=== PATIENT | male | born 1960 | race Two or more races ===

== ENCOUNTER 2024-11-20 08:35 | Outpatient (RCR) | payer MEDICAID, SELFPAY ==
--- NOTE | 2024-11-20 09:06 | PTNOTE_ITS ---
PT OP Initial Eval Patient Information Outpatient Physical Therapy Treatment Date: 11/20/24 Visit Reasons: Pain in RT shoulder Medical Diagnosis: M25.511 G89.29 Start of Care: 11/20/24 Date of Onset: 6 months Smoking Status Smoking Status: Never smoker Initial Assessment Subjective: Pt is 64 yr old slovenian speaking male who reports R shoulder pain since feeling a pop while cutting a branch x6 months ago. Increased pain at night, lifting things, reaching OH, throwing things with R UE. 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 PMH: allergies, gastritis, L/S sx x3 to repair disc injury, high cholesterol, R shoulder sx x2, L shoulder sx RCR Imaging: Xrays of R shoulder with provider Pt goal: less shoulder pain but not sure if therapy will help Objective: R shoulder ArOM: Strength: FF: 135 deg 3-/5 Abd: 115 deg with pain 3-/5 ER: 80 deg Special tests: [place]: positive Empty can: positive Drop arm: positive Assessment: Pt presents with limited ROM , strength and pain consistent with R shoulder RC tendinopathy and possible tear. Pt is not likely going to benefit from skilled therapy and has poor rehab potential to meet goals. Pt will most likely have more pain with therapy interventions. PT recommends further diagnostic imaging of R shoulder such as MRI. Short Term and Residential Goals Eval and D/C Treatment Plan Eval and D/C Certification Dates: 11/20/24-11/21/24 Procedure Charges OP PT Eval Mod Complex 30 minutes: Yes
== END 2024-11-27 23:59 | disposition home or self-care (01) ==
LOC: CPTX 08:35
PROVIDERS: PCP Physician Assistant; Referring Provider Physician Assistant; Visit Provider Physician Assistant
DX: M25.511 Pain in right shoulder (principal); G89.29 Other chronic pain
CPT/HCPCS: 97162

== ENCOUNTER 2024-12-12 13:28 | Emergency (ER) | payer MEDICAID, SELFPAY ==
[2024-12-12 13:29] VITALS: BMI 31.4
[2024-12-12 13:43] VITALS: BP 138/77; PULSE 86; RESP 18; TEMP 36.6; O2SAT 95
[2024-12-12] MEDS: LIDOCAINE HCL 1% 20 ML VIAL INFL (14:36)
--- NOTE | 2024-12-12 14:50 | PD.EDWOUND ---
ED Wound/Laceration-RME/HPI General Chief Complaint: Wound/Laceration Stated Complaint: LAC TO L) THUMB Time Seen by Provider: 12/12/24 13:32 Source: patient Arrival date/time: 12/12/24 13:28 This is a case of 65-year-old male who came in in the emergency room due to a laceration of the left thumb history of present illness started 1 hour prior to arrival in the emergency room patient left thumb accidentally cut by a chainsaw sustaining laceration 5 cm on the left thumb no other injury noted Limitations: no limitations Related Data Home Medications ?Medication ?Instructions ?Recorded ?Confirmed montelukast 10 mg tablet 10 mg PO HS #0 tabs 06/06/15 11/27/21 (Singulair) gabapentin 600 mg tablet 600 mg PO Q8H #0 tabs 03/17/17 11/27/21 amlodipine 5 mg tablet 1 tab PO QDAY 11/27/21 11/27/21 baclofen 10 mg tablet 1 tab PO BID 11/27/21 11/27/21 cetirizine 10 mg tablet 1 tab PO QDAY 11/27/21 11/27/21 dexlansoprazole 60 mg 1 cap PO QDAY 11/27/21 11/27/21 capsule,biphase delayed release esomeprazole magnesium 40 mg 1 cap PO QDAY 11/27/21 11/27/21 capsule,delayed release fluticasone propionate 50 1 spray intranasal BID 11/27/21 11/27/21 mcg/actuation nasal spray,suspension hydroxyzine HCl 25 mg tablet 1 tab PO QDAY 11/27/21 11/27/21 loratadine 10 mg tablet 1 tab PO QDAY 11/27/21 11/27/21 losartan 100 1 tab PO QDAY 11/27/21 11/27/21 mg-hydrochlorothiazide 25 mg tablet milnacipran 12.5 mg (5)-25 See Rx Instructions .Route .COMPLEX 11/27/21 11/27/21 mg(8)-50mg(42) tablets in a dose pack (Savella) svaikahv-fvvrsjwkb-xdsmsrhp 3.5 1 drp ophthalmic (eye) BID 11/27/21 11/27/21 mg/mL-10,000 unit/mL-0.1% eye drops sennosides 8.6 mg tablet (senna) 2 tab PO HS 11/27/21 11/27/21 sertraline 100 mg tablet 1 tab PO BID 11/27/21 11/27/21 simvastatin 20 mg tablet 1 tab PO QPM 11/27/21 11/27/21 sucralfate 1 gram tablet 1 tab PO BID 11/27/21 11/27/21 tramadol 100 mg tablet 1 tab PO QDAY 11/27/21 11/27/21 Previous Rx's ?Medication ?Instructions ?Recorded cephalexin 500 mg tablet 500 mg PO QID 10 days #40 tabs 12/12/24 mupirocin 2 % topical ointment 1 applic topical TID #22 grams 12/12/24 Allergies Allergy/AdvReac Type Severity Reaction Status Date / Time No Known Allergies Allergy Verified 12/12/24 13:31 Review of Systems Review of Systems Systems Reviewed: All systems reviewed, normal except as documented Constitutional Constitutional: Reports system reviewed and no additional complaints, except as documented and Reports as per HPI Cardiovascular Cardiovascular: Reports system reviewed and no additional complaints, except as documented and Reports as per HPI Respiratory Respiratory: Reports system reviewed and no additional complaints, except as documented and Reports as per HPI Gastrointestinal Gastrointestinal: Reports system reviewed and no additional complaints, except as documented and Reports as per HPI Musculoskeletal Musculoskeletal: Reports other (Left thumb injury) Integumentary/Breasts Skin/Breast: Reports system reviewed and no additional complaints, except as documented, Reports as per HPI and Reports other (Laceration) Neurologic Neurologic: Reports system reviewed and no additional complaints, except as documented Past Medical History Past Medical History NEUROLOGIC: Negative Neurological Disorders or Seizures CARDIAC: Positive Cardiac Disorders, Hypercholesterolemia and Hypertension; Negative Congestive Heart Failure or Edema RESPIRATORY: Positive Asthma; Negative Chronic Obstructive Pulmonary Disease (COPD) or Sleep Apnea GASTROINTESTINAL: Positive Gastrointestinal Disorders (Gastritis and esophagitis), Hemorrhoids and Gastroesophageal Reflux Disease GENITOURINARY: Negative Genitourinary Disorders or Renal Disease MUSCULOSKELETAL: Positive Musculoskeletal Disorders ENDOCRINE: Negative Endocrine Disorders, Diabetes Mellitus Type 1, Diabetes Mellitus Type 2 or Hypothyroidism HEMATOLOGIC: Negative Blood Disorders, Anemia or Clotting Problems PSYCHO/SOCIAL: Positive Depression and Anxiety OTHER HISTORY: Negative Hospitalization, Falls, Blood Transfusions, Anesthesia Reactions, Chemotherapy or Radiation Therapy Surgical History SURGICAL: Negative Cardiac Surgery Social History SMOKING STATUS: Never smoker ED Exam General Limitations: Present no limitations General appearance: Present alert, in no apparent distress and other (Patient is awake alert oriented not in distress well-hydrated well-nourished) Head Head exam: Present atraumatic Eye Eye exam: Present normal appearance, PERRL and EOMI ENT ENT exam: Present normal exam, normal oropharynx and mucous membranes moist Neck Neck exam: Present normal inspection, full ROM and trachea midline Chest Chest inspection: Present normal inspection and symmetric chest wall rise Respiratory Respiratory exam: Present normal lung sounds bilaterally; Absent respiratory distress, wheezes, stridor, accessory muscle use or prolonged expiratory phase Cardiovascular Cardiovascular exam: Present regular rate, normal rhythm and normal heart sounds; Absent bradycardia, tachycardia, irregular rhythm, systolic murmur or diastolic murmur Abdominal Exam Abdominal exam: Present soft and normal bowel sounds; Absent distention, tenderness, rebound, rigidity, diminished bowel sounds, hyperactive bowel sounds, hypoactive bowel sounds or organomegaly Extremities Exam Extremities exam: Present normal inspection and full ROM Expanded Upper Extremity Exam Hand exam: Present other (5 cm laceration on the left dorsal left thumb ROM intact pulses were full and equal capillary refill less than 2 seconds sensory and reflex were normal) Back Exam Back exam: Present normal inspection and full ROM Neurological Exam Neurological exam: Present alert, oriented X3, CN II-XII intact, normal gait and reflexes normal; Absent motor sensory deficit Psychiatric Psychiatric exam: Present normal affect and normal mood Skin Skin exam: Present warm, dry, intact, normal color and other (Patient sustained 5 cm laceration on the left thumb linear minimal bleeding no foreign body no tendon no bone no muscle injury no redness no cellulitis no abscess) Course Quality Measures none Orders Category Date Time Status Lidocaine 1% 20 ml [Xylocaine 1% 20 ML] Med 12/12/24 14:32 Discontinued 20 ml INFL X1 ONE TET,DIP/PERT AC (Adult)-Tdap [Boostrix Adult (Tdap) Med 12/12/24 14:50 Discontinued Vacc] 0.5 ml IMI .ONCE ONE Vital Signs Vital signs: Vital Signs Temperature 98 F 12/12/24 13:43 Pulse Rate 86 12/12/24 13:43 Respiratory Rate 18 12/12/24 13:43 Blood Pressure 138/77 H 12/12/24 13:43 Pulse Oximetry (%) 95 12/12/24 13:43 Oxygen Delivery Method Room Air 12/12/24 13:43 Patient is afebrile not tachycardic not tachypneic BP stable not hypoxic oxygen saturation is 95% in room PROCEDURES: Laceration Laceration 1: Site: other (Thumb) Side (If applicable): left Size (cm): 5 Description: linear Depth: simple, single layer Local Anesthetic: lidocaine 1% Amount of anesthesia used (mL): 10 Pre-repair: irrigated extensively and deep structures intact Skin layer closed with: nylon Suture size (cm): 4-0 Number of sutures: 11 Technique: simple, interrupted Wound / Laceration MDM Narrative MDM Narrative:: This is a case of 65-year-old male who came in in the emergency room due to a laceration of the left thumb history of present illness started 1 hour prior to arrival in the emergency room patient left thumb accidentally cut by a chainsaw sustaining laceration 5 cm on the left thumb no other injury noted physical examination patient is awake alert oriented not in distress nontoxic looking patient sustained a 5 cm laceration on the dorsal aspect left thumb minimal bleeding no foreign body no tendon no bone no muscle injury no nail involvement ROM intact neurovascular intact laceration repair was performed patient tolerated well the procedure no complication noted bleeding controlled procedure done by [facility] protocol and via sterile technique patient will follow-up with PCP in 2 days for reevaluation and wound check in 10 days for removal of suture for any worsening symptoms or any signs and symptoms of infection return to the emergency room immediately or call 911 patient was prescribed cephalexin and mupirocin to prevent infection and advised to take Tylenol Motrin as needed for pain Tdap given prior to discharge Patient was discharged with comfortable condition walking with stable gait. Patient verbalized no further complains explained diagnosis and answered patient question. Patient is comfortable with the proposed management plan including the need to follow up with his/her primary care physician and any specialist if applicable Discussed patient for any urgent condition or worsening sx, He/She needed to go to emergency room immediately or call 911. Patient acknowledge the responsibility to follow up as instructed and to monitor her/his symptoms. For any persistence of the symptoms for more than 3-5 days return precaution advised. Discussed the result of the test and was given printed discharge instruction Patient data External records reviewed:: [facility] previous records Clinical information provided by:: patient Social determinants that could affect healthcare access:: none Patient has the following chronic illnesses:: None How is presenting disease/condition affected by chronic disease/condition?: no chronic disease Evaluation data The following diagnostics were reviewed and interpreted by me:: other (specify) Lab and/or radiology exams considered but not ordered:: None Interpretation Summary: None Medications / Prescriptions Medications or Prescriptions considered but not ordered:: Given Medication administrations:: Medication Administration History Discontinued Medications Diphtheria/Tetanus/Acell Pertussis (Diphth,Pertuss(Acell),Tet Vac 0.5 Ml Syr- Adult) 0.5 ml IMi .ONCE ONE Stop: 12/12/24 14:51 Lidocaine HCl (Lidocaine Hcl 1% 20 Ml Vial) 20 ml INFL X1 ONE Stop: 12/12/24 14:33 Last Admin: 12/12/24 14:36 Dose: 20 ml Documented By: VETO Comments: USED BY PROVIDER Given Consultations Consultation(s) initiated? (list below): No Diagnosis Wound Differential Diagnosis: laceration Most likely diagnosis given after review of the tests above:: Thumb laceration Admission Indicated Admission indicated?: not indicated Explain why admission is indicated or not indicated:: Not indicated Admission Request Was there a request for admission?: No Admission Attestation Admission request attestation: Not indicated Disposition Plan Disposition Plan: Discharge Discharge Attestation Discharge Attestation: The patient and all family members were given an opportunity to ask questions and understood the discharge instructions. Discharge instructions specifically effects, indications for sooner follow up or return to the emergency department, and the expected course of current diagnosis. Patient condition: Stable Discharge Plan Plan Patient Disposition: HOME (Self Care) Patient condition on transfer: Stable Prescriptions/Referrals Prescriptions/Med Rec: New cephalexin 500 mg tablet 500 mg PO QID 10 Days Qty: 40 0RF mupirocin 2 % ointment 1 applic topical TID Qty: 22 0RF No Action montelukast [Singulair] 10 MG tablet 10 mg PO HS Qty: 0 gabapentin 600 MG tablet 600 mg PO Q8H Qty: 0 sennosides [senna] 8.6 mg tablet 2 tab PO HS Patient Comments: TOME DOS TABLETAS POR VIA ORAL AL ACOSTARSE CUANDO SEA NECESARIO 30 cetirizine 10 mg tablet 1 tab PO QDAY sucralfate 1 gram tablet 1 tab PO BID Patient Comments: TOME AIDA TABLETA DOS VECES AL D A EN EST ILDEFONSO VAC O FOR 30 DAYS sertraline 100 mg tablet 1 tab PO BID Patient Comments: TOME AIDA TABLETA TODOS LOS D FOR 30 DAYS amlodipine 5 mg tablet 1 tab PO QDAY Patient Comments: TOME AIDA TABLETA TODOS LOS D FOR 30 DAYS losartan-hydrochlorothiazide 100-25 mg tablet 1 tab PO QDAY Patient Comments: TOME AIDA TABLETA TODOS LOS D baclofen 10 mg tablet 1 tab PO BID Patient Comments: TOME AIDA TABLETA DOS VECES AL D A CUANDO SEA NECESARIO FOR 30 DAYS simvastatin 20 mg tablet 1 tab PO QPM Patient Comments: TOME AIDA TABLETA TODOS LOS D EN LA NOCHE esomeprazole magnesium 40 mg capsule,delayed release(DR/EC) 1 cap PO QDAY Patient Comments: TOME AIDA C PSULA TODOS LOS D FOR 30 DAYS neomycin-polymyxin B-dexameth 3.5mg/mL-10,000 unit/mL-0.1 % drops,suspension 1 drp OPHTHALMIC (EYE) BID Patient Comments: PONGA AIDA GOTA EN CECILIO DERECHO DOS VECES AL D A Rx Instructions: ONE DROP IN THE RIGHT EYE TWICE DAILY hydroxyzine HCl 25 mg tablet 1 tab PO QDAY Patient Comments: TOME AIDA TABLETA TODOS LOS ALONZO AL ACOSTARSE FOR 30 DAYS fluticasone propionate 50 mcg/actuation spray,suspension 1 spray INTRANASAL BID Patient Comments: SPRAY 1 SPRAY INTO EACH NOSTRIL 2 TIMES DAILY FOR 30 DAYS loratadine 10 mg tablet 1 tab PO QDAY Patient Comments: TOME AIDA TABLETA TODOS LOS D dexlansoprazole 60 mg capsule,biphase delayed releas 1 cap PO QDAY Patient Comments: TOMEmma AIDA C PSULA TODOS LOS D Savella 12.5 mg (5)-25 mg(8)-50 mg(42) tablets,dose pack See Rx Instructions .ROUTE .COMPLEX Patient Comments: DIRECTED ORALLY 30 DAYS Rx Instructions: USE DIRECTED tramadol 100 mg tablet 1 tab PO QDAY Patient Comments: TOME AIDA TABLETA POR V A ORAL TODOS LOS D Referrals: No Primary/Family,Physician [Primary Care Provider] - In 1 week Problem List Clinical Impression: Laceration of thumb Patient/Caregiver Discharge Instructions Education Materials: Suture Care, ED Laceration: All Closures Additional Instructions: Follow-up with your primary care physician in 2 days for reevaluation and wound check in 10 days for removal of suture worsening symptoms or any emergent concern or any signs and symptoms of infection such as redness swelling discharge from the wound pain fever chills call 911 or go to the nearest emergency room take your medication as directed finish the course of antibiotic keep the wound clean and dry Print Language: Estonian Stand Alone Forms: Kari Award Info., Patient Portal Info Letter PA/CONTRACT CLERK Supervising Physician PA/CONTRACT CLERK Supervising Physician: DR lu
[2024-12-12] MEDS: DIPHTH,PERTUSS(ACELL),TET VAC 0.5 ML SYR- ADULT IMi (14:57)
== END 2024-12-12 15:27 | disposition home or self-care (01) ==
PROVIDERS: Emergency Provider Emergency Medicine
DX: S61.012A Laceration without foreign body of left thumb without damage to nail, initial encounter (principal); W29.3XXA Contact with powered garden and outdoor hand tools and machinery, initial encounter; Z23 Encounter for immunization
CPT/HCPCS: 12002; 90471; 90715; 99283; J3490